=== PATIENT | female | born 1965 | race Two or more races ===

== ENCOUNTER → 2018-11-02 12:04 | Outpatient (CLI) | payer OTHER ==
[~2018-11-02 12:04] MED LIST: EFFEXOR XR37.5 MG PO; LEVOTHYROXINE25 MCG PO
== END | disposition home or self-care (01) ==
LOC: RAD 12:04
DX: R07.89 Other chest pain (principal)

== ENCOUNTER 2018-11-02 16:29 | Inpatient (IN) | payer OTHER ==
[~2018-11-02] VITALS: Ht 157.5 cm; Wt 67.1 kg
== END 2018-11-10 16:46 | DRG 743 ==
LOC: O/R 11-07 06:00 → SURG 11-07 07:00 → OB/GYN 11-07 13:18
PROVIDERS: ADMIT Obstetrics & Gynecology
PROC: 0UT90ZZ Resection of Uterus, Open Approach (ICD-10-PCS; principal; 2018-11-07 07:00)
DX: D25.1 Intramural leiomyoma of uterus (principal); D25.2 Subserosal leiomyoma of uterus; N85.01 Benign endometrial hyperplasia; N83.12 Corpus luteum cyst of left ovary; N83.11 Corpus luteum cyst of right ovary; D51.0 Vitamin B12 deficiency anemia due to intrinsic factor deficiency

== ENCOUNTER 2020-05-18 12:49 | Emergency (ER) | payer OTHER ==
[~2020-05-18] VITALS: Ht 157.5 cm; Wt 68.0 kg
[2020-05-18] MEDS ORDERED: LOTREL 5-10 MG1 CAP PO (13:32)
[2020-05-18] MEDS ORDERED: NAPROXEN500 MG PO (18:24)
[2020-05-18] MEDS ORDERED: SKELAXIN800 MG PO (18:24)
== END 2020-05-18 18:36 | disposition home or self-care (01) ==
LOC: ER 12:49
DX: S00.83XA Contusion of other part of head, initial encounter (principal); S80.02XA Contusion of left knee, initial encounter; S40.011A Contusion of right shoulder, initial encounter; W18.39XA Other fall on same level, initial encounter; Y93.89 Activity, other specified; Y92.488 Other paved roadways as the place of occurrence of the external cause; Y99.8 Other external cause status

== ENCOUNTER 2020-11-05 09:47 | Outpatient (CLI) | payer OTHER ==
[~2020-11-05 09:47] MED LIST changes: +LOTREL 5-10 MG1 CAP PO; +NAPROXEN500 MG PO; +SKELAXIN800 MG PO
== END 2020-11-05 09:48 | disposition home or self-care (01) ==
LOC: MAMO-SONO 09:47
PROVIDERS: ATTEND Obstetrics & Gynecology
DX: N64.59 Other signs and symptoms in breast (principal); Z12.31 Encounter for screening mammogram for malignant neoplasm of breast; Z87.898 Personal history of other specified conditions